=== PATIENT | male | born 1965 | race Caucasian/White ===

== ENCOUNTER 2019-04-22 13:34 | Emergency (ER) | payer BC ==
[~2019-04-22] VITALS: Ht 185.4 cm; Wt 93.1 kg
[2019-04-22 13:36] VITALS: BP 124/78; PULSE 64; RESP 19; Ht 185.4 cm; Wt 93.1 kg
[2019-04-22] MEDS ORDERED: ASPIRIN 81 MG TAB PO STA (13:48)
[2019-04-22] MEDS ORDERED: NITROGLYCERIN 2% 1 GM OINT PKT TD STA (13:48)
[2019-04-22] MEDS ORDERED: NITROGLYCERIN (SL) 0.4 MG TAB SL PRN (14:00)
== END 2019-04-22 14:20 | disposition home or self-care (01) ==
LOC: E/R 13:34
DX: R07.9 Chest pain, unspecified (principal)
CPT/HCPCS: 80048; 84484; 85025; 93005

== ENCOUNTER 2019-04-22 18:35 | Emergency (ER) | payer BC ==
[~2019-04-22] VITALS: Ht 172.7 cm; Wt 93.5 kg
[2019-04-22 18:57] VITALS: Ht 172.7 cm; Wt 93.5 kg
[2019-04-22] MEDS ORDERED: NITROGLYCERIN 2% 1 GM OINT PKT TD STA (19:44)
[2019-04-22] MEDS ORDERED: NITROGLYCERIN (SL) 0.4 MG TAB SL PRN (20:00)
[2019-04-22 21:33] VITALS: BP 115/80; PULSE 66; RESP 16
== END 2019-04-22 21:34 | disposition left against medical advice (07) ==
LOC: E/R 18:35
DX: R07.9 Chest pain, unspecified (principal)
CPT/HCPCS: 36415; 71045; 80048; 84484; 85025; 93005; 99285; Z7610